=== PATIENT | female | born 1995 | race Caucasian/White ===

== ENCOUNTER 2025-06-21 11:15 | Inpatient (IN) ==
[2025-06-21] MEDS ORDERED: LIDOCAINE 1% LOCAL 20 ML VIAL INFIL PRN (12:09)
--- NOTE | 2025-06-21 12:24 | History & Physical Report ---
Date of Service June 21, 2025 Assessment & Plan (1) Encounter for induction of labor: Plan: Patient is stable and feeling well. Ordered Pitocin to initiate labor. Patient also desired an epidural for when labor starts. (2) Group B streptococcal infection during : Plan: Patient stated she had a GBS positive. Patient denied any penicillin allergy. Ordered penicillin. Admission and Anticipated Discharge Date Admission Date: June 21, 2025 History of Present Illness Chief Complaint: Induction Primary Care Provider: Casandra Ratliff DO 30 yo at 39w4d admitted for IOL for postdates. Patient states that she has not felt any contractions. Patient reports she does feel movement. Patient denies fluid loss and bloody show. Patient states that she has had regular care. She stated that her legs are swollen. Denies fevers, chills, sweats, Headache, CP, SOB, N/V/D, dysuria, and breast pain. GBS+ Allergies Allergy/AdvReac Type Severity Reaction Status Date / Time No Known Allergies Allergy Verified 06/21/25 11:42 Home Medications Medication Instructions Recorded Confirmed Type PNV [id number] 1 tab PO DAILY 11/29/24 06/21/25 History [ Gummies] Patient History Medical History (Updated 06/21/25 @ 12:21 by Francisco Shine DO) Varicella vaccination History of cervical dysplasia (08/02/24) SILVIA II (cervical intraepithelial neoplasia II) Pap smear cannot exclude high grade squamous intraepithelial lesion (ASC-H) Abnormal Pap smear of cervix Surgical History (Updated 06/21/25 @ 11:36 by Hayley Delgado RN) History of loop electrical excision procedure (LEEP) (08/02/24) 11/08/23 [place] teeth removed as a teenager Family History Denies family history of Ovarian cancer Prostate cancer Myocardial infarction Breast cancer Colorectal cancer Social History (Updated 06/21/25 @ 11:42 by Hayley Delgado, ESAU) Smoking Status: Never smoker Second Hand Exposure: No; Do You Dip or Chew Tobacco: No; Hx Alcohol Use: No Hx Substance Use: No Preferred Language: [place] Land [employer] Required: No Beliefs That Will Affect Care: None marital status: marital status details: Simon Castro (33) [phone] Current Living Situation: Spouse Current Living Situation Comment: lives with spouse, no pets current occupational status: unemployed current occupation: homemaker How many Children do You have: 0 Feels Safe at Home: Yes Safety Concerns: Feels Safe At This Time Assistive Devices: None Review of Systems as per Subjective HPI Physical Exam Constitutional: WD/WN, vitals as above Respiratory: normal respiratory effort, lungs clear to auscultation Cardiovascular: Rate/Rhythm: regular rate and regular rhythm Heart Sounds: normal S1 and normal S2 Legs slightly swollen, but wnl for . Gastrointestinal (Abdomen): Percussion/Palpation: abdomen nontender Skin: no rashes, warm and dry Psychiatric: Eye Contact: good eye contact Speech: normal rate/rhythm/volume of speech Thought Process: linear/logical thought process Results & Data Vital Signs (Past 12 Hours) Vital Signs Temp Pulse Resp BP 06/21/25 11:35 36.8 C 16 06/21/25 11:32 87 138/89 Supervising Physician Co-Signing Physician Notes Resident Physician Supervision Note: I was present with Dr. Shine during the history and exam. I discussed the case w ith the resident and agree with the findings and plan as documented in the note. Any exceptions or clarifications are listed here: [None] Documented By: Josseline Layton, DO
[2025-06-21 12:41] LABS: Hematocrit (blood only) 31.0 % (37.0-47.0); Hemoglobin 10.7 g/dl (12.0-16.0); Mean Corpuscular Hemoglobin 29.6 pg (25.0-34.0); Mean Corpuscular Volume 85.9 fL (80.0-100.0); Platelet Count 266 K/uL (130-400); RDW Standard Deviation 43.3 fL (36.4-46.3); Red Blood Count 3.61 M/uL (4.20-5.40); White Blood Count 8.56 K/ul (4.8-10.8)
[2025-06-21] MEDS: PENICILLIN GK 6 MU in DEXTROSE 5% 250 ML IV STA (12:59)
[2025-06-21] MEDS: OXYTOCIN 30 UNITS/NSS 30 UNITS/500 ML BAG IV PRN (12:59)
[2025-06-21] MEDS: LACTATED RINGER'S 1,000 ML IV PRN (12:59)
[2025-06-21] MEDS: PENICILLIN GK 3 MU in DEXTROSE 5% 100 ML IV PRN (16:49)
[2025-06-21] MEDS ORDERED: NALBUPHINE HCL INJ 10 MG/ML AMP IV PRN (16:57)
[2025-06-21] MEDS ORDERED: ROPIVACAINE 0.5% PF 5 MG/ML 20 ML VIAL EPI PRN (16:57)
[2025-06-21] MEDS ORDERED: SODIUM CHLORIDE 0.9% PF INJ 10 ML VIAL EPI PRN (16:57)
[2025-06-21] MEDS ORDERED: NALOXONE HCL 0.4 MG/1 ML VIAL/CARP IV PRN (16:57)
[2025-06-21] MEDS ORDERED: diphenhydrAMINE 50 MG/ML VIAL IV PRN (16:57)
[2025-06-21] MEDS ORDERED: NALOXONE HCL 1 MG in SODIUM CHLORIDE 0.9% 1,000 ML IV PRN (16:57)
[2025-06-21] MEDS ORDERED: LIDOCAINE 2% MPF LOCAL 5 ML VIAL EPI PRN (16:57)
[2025-06-21] MEDS ORDERED: BUPIVACAINE 0.25% PF 30 ML VIAL EPI PRN (16:57)
--- NOTE | 2025-06-21 17:00 | Anesthesiology Consultation ---
Date of Service June 21, 2025 Assessment & Plan Chart Review Chart Review: Patient NOT seen in Pre Admission Testing and Acceptable Risk for Labor Epidural Consults Requested none ASA ASA2 Proposed Anesthesia Anesthesia Type: Labor Epidural Risk / Benefits Reviewed With: PT / POA / Parent / Guardian, Accepts Plan and Informed Consent Obtained History Height/Weight Height: 5 ft 3 in Weight: 87.997 kg Allergies Allergy/AdvReac Type Severity Reaction Status Date / Time No Known Allergies Allergy Verified 06/21/25 11:42 Medications Home Medications Medication Instructions Recorded Confirmed Last Taken PNV no.[id number] 1 tab PO DAILY 11/29/24 06/21/25 06/20/25 [ Gummies] Active Medications Generic Name Dose Route Start Last Admin Trade Name Freq PRN Reason Stop Dose Admin Lactated Ringer's 1,000 mls @ 125 mls/hr 06/21/25 12:09 06/21/25 17:05 Lr IV 06/23/25 12:08 125 mls/hr .Q8H PRN Administration L&D Protocol Protocol Penicillin G Potassium 3 mu/ 106 mls @ 100 mls/hr 06/21/25 15:09 06/21/25 16:49 Dextrose IV 07/01/25 15:08 100 mls/hr Q4H PRN Administration GBS(+) Until Delivery Oxytocin 30 units in 500 mls @ 11 mls/hr 06/21/25 12:09 06/21/25 15:40 Pitocin 30 Units/Nss IV 06/23/25 12:08 0.66 units/hr .Q24H PRN 11 mls/hr Labor Induction/Augmentation Titration Protocol 0.66 UNITS/HR NPO Date Last Intake of Fluids: 06/21/25 Time Last Intake of Fluids: 16:45 Date Last Intake of Solids: 06/21/25 Time Last Intake of Solids: 10:50 Past Medical History Medical History Varicella vaccination History of cervical dysplasia (08/02/24) SILVIA II (cervical intraepithelial neoplasia II) Pap smear cannot exclude high grade squamous intraepithelial lesion (ASC-H) Abnormal Pap smear of cervix Exercise / Class Metabolic Activity 1 > 8 Run/Swim/Ski/Tennis Past Family History Family History Denies family history of Ovarian cancer Prostate cancer Myocardial infarction Breast cancer Colorectal cancer Past Surgical History Surgical History History of loop electrical excision procedure (LEEP) (08/02/24) 11/08/23 [place] teeth removed as a teenager Past Anesthesia History No Hx of Anesthesia Complications and No Family Hx of Anesthesia Complications History of PONV No Hx of PONV and No Hx of Motion Sickness Social History Smoking Status: Never smoker Do You Dip or Chew Tobacco: No Hx Alcohol Use: No Hx Substance Use: No substance use type: does not use Review of Systems ROS Unobtainable: All systems reviewed & are unremarkable except as noted in HPI & below Physical Exam Vital Signs Last Vital Signs Temp 36.7 C 06/21/25 15:00 Pulse 73 06/21/25 16:54 Resp 18 06/21/25 15:00 BP 141/80 H 06/21/25 16:53 Pulse Ox 100 06/21/25 16:54 ENMT Mouth: no TMJ abnormality Thyromental Distance: > or= 3.5 Finger Breadths Mallampati Class: II Neck normal visual inspection and trachea midline; neck extension not limited Respiratory normal respiratory effort Auscultation: lungs clear to auscultation bilaterally Cardiovascular Rate/Rhythm: regular rate and regular rhythm Heart Sounds: no murmur Musculoskeletal Spine: normal cervical ROM Extremities: full ROM of extremities Neurologic moves all extremities Psychiatric Orientation: alert and oriented x 3 Testing Laboratory Results 06/21/25 12:16
[2025-06-21] MEDS: BUPIVACAINE 0.25% PF 30 ML VIAL ONE (17:22)
[2025-06-21] MEDS: SODIUM CHLORIDE 0.9% PF INJ 10 ML VIAL ONE (17:22)
[2025-06-21] MEDS: LIDOCAINE 2%/EPINEPHRINE 1:200,000 20 ML PF ONE (17:22)
[2025-06-21] MEDS: fentANYL 2 MCG/ML BUPIVacaine 0.125%-NSS 100ML BAG ONE (17:23)
[2025-06-21] MEDS: BUPIVACAINE 0.25% PF 30 ML VIAL EPI STA (17:52)
[2025-06-21] MEDS: LIDOCAINE 2%/EPINEPHRINE 1:200,000 20 ML PF EPI STA (17:52)
[2025-06-21] MEDS: SODIUM CHLORIDE 0.9% PF INJ 10 ML VIAL EPI STA (17:52)
--- NOTE | 2025-06-21 19:34 | Labor Progress Brief Note ---
Date of Service June 21, 2025 Subjective Comfortable with epidural. FHT Cat 1. [place] Q 2 SVE 6-7/100/0 AROM clear fluid Assessment & Plan Admission and Anticipated Discharge Date Admission Date: June 21, 2025 Results & Data Vital Signs (Past 12 Hours) Vital Signs Temp Pulse Resp BP Pulse Ox 06/21/25 19:29 75 128/60 99 06/21/25 19:24 89 100 06/21/25 19:19 75 99 06/21/25 19:15 36.8 C 06/21/25 19:14 68 99 06/21/25 19:13 65 132/65 06/21/25 19:09 78 99 06/21/25 19:04 71 100 06/21/25 18:59 84 100 06/21/25 18:58 78 122/67 06/21/25 18:54 71 100 06/21/25 18:49 71 100 06/21/25 18:44 77 100 06/21/25 18:43 73 120/58 L 06/21/25 18:39 70 100 06/21/25 18:34 74 100 06/21/25 18:30 20 06/21/25 18:30 20 06/21/25 18:29 70 113/58 L 100 06/21/25 18:24 74 100 06/21/25 18:19 75 100 06/21/25 18:15 20 06/21/25 18:15 20 06/21/25 18:14 64 116/59 L 99 06/21/25 18:09 70 100 06/21/25 18:04 76 100 06/21/25 18:00 20 06/21/25 18:00 20 06/21/25 17:59 68 99 06/21/25 17:56 71 118/56 L 06/21/25 17:54 69 123/59 L 99 06/21/25 17:52 68 114/56 L 06/21/25 17:50 69 115/56 L 06/21/25 17:49 69 99 06/21/25 17:48 73 110/57 L 06/21/25 17:46 73 120/58 L 06/21/25 17:45 20 06/21/25 17:44 67 116/58 L 99 06/21/25 17:42 67 112/59 L 06/21/25 17:41 88 101/51 L 06/21/25 17:39 81 99 06/21/25 17:38 65 112/64 06/21/25 17:36 65 114/64 06/21/25 17:34 99 06/21/25 17:34 61 06/21/25 17:34 67 109/57 L 06/21/25 17:32 65 102/52 L 06/21/25 17:30 72 20 108/55 L 06/21/25 17:29 97 06/21/25 17:29 75 06/21/25 17:29 75 114/57 L 06/21/25 17:26 71 107/51 L 06/21/25 17:24 79 113/54 L 99 06/21/25 17:22 85 124/67 06/21/25 17:19 80 142/81 H 99 06/21/25 17:14 85 99 06/21/25 17:09 87 100 06/21/25 17:04 78 99 06/21/25 16:59 80 100 06/21/25 16:54 73 100 06/21/25 16:53 71 141/80 H 06/21/25 16:49 81 100 06/21/25 16:44 74 100 06/21/25 16:39 67 99 06/21/25 15:53 67 126/78 06/21/25 15:00 18 06/21/25 15:00 36.7 C 18 06/21/25 14:53 70 120/84 06/21/25 13:53 70 123/75 06/21/25 12:53 75 129/77 06/21/25 11:35 36.8 C 16 06/21/25 11:32 87 138/89 Coding Level of Care Code None
[2025-06-21] MEDS: ONDANSETRON INJ 2 MG/ML 2 ML VIAL IV PRN (22:49)
[2025-06-21] MEDS: NURSING L&D Epidural Breakthrough Pain Update ONE (23:24)
--- NOTE | 2025-06-22 00:03 | Anesthesia Procedure Note ---
Date of Service June 22, 2025 Anesthesia Epidural Re-Dose Vital Signs Temp Pulse Resp BP Pulse Ox 36.8 C 71 20 122/67 97 06/21/25 23:48 06/22/25 00:01 06/21/25 18:30 06/22/25 00:01 06/21/25 23:59 Notes Pain Intensity: 0 Dilatation (cm): 9.0 Effacement (%): 100 Called by nursing to evaluate epidural as the patient is having increased pain. The epidural was re-dosed with the following medications (all medications via epidural route) after negative aspiration of the epidural catheter for CSF/HEME. 0.2 Ropivacaine ml via epidural After Epidural Re-Dose Mental Status: alert / awake / arousable and participated in evaluation Pain: improving with treatment Airway Patency, RR, SpO2: stable & adequate BP & HR: stable & adequate Additional Notes: incrementally dosed 8 cc of 1% lido due to severe pressure in back. Otherwise, patient denies sharp pain and has had bilateral and adequate relief from epidural up until now. HDS. no nausea.
--- NOTE | 2025-06-22 00:19 | Labor Progress Brief Note ---
Date of Service June 22, 2025 Subjective Comfortable with epidural. Starting to push. 10/100/+1 Assessment & Plan Admission and Anticipated Discharge Date Admission Date: June 21, 2025 Results & Data Vital Signs (Past 12 Hours) Vital Signs Temp Pulse Resp BP Pulse Ox 06/22/25 00:14 97 H 98 06/22/25 00:13 81 139/87 06/22/25 00:09 92 H 96 06/22/25 00:08 75 113/69 06/22/25 00:07 86 93 06/22/25 00:04 86 99 06/22/25 00:01 71 122/67 06/21/25 23:59 72 125/70 97 06/21/25 23:57 77 120/64 06/21/25 23:55 71 112/64 06/21/25 23:54 74 97 06/21/25 23:53 65 116/66 06/21/25 23:51 72 117/63 06/21/25 23:49 99 06/21/25 23:49 83 06/21/25 23:49 88 119/66 06/21/25 23:48 36.8 C 06/21/25 23:44 73 131/71 96 06/21/25 23:39 68 97 06/21/25 23:34 88 98 06/21/25 23:29 80 98 06/21/25 23:28 70 128/58 L 06/21/25 23:24 70 100 06/21/25 23:19 90 99 06/21/25 23:14 80 132/63 100 06/21/25 23:09 77 99 06/21/25 23:04 71 100 06/21/25 22:59 80 100 06/21/25 22:58 68 126/58 L 06/21/25 22:54 71 100 06/21/25 22:49 70 98 06/21/25 22:44 99 06/21/25 22:44 66 06/21/25 22:44 67 128/61 06/21/25 22:39 73 99 06/21/25 22:34 82 100 06/21/25 22:29 65 128/63 97 06/21/25 22:24 70 98 06/21/25 22:19 70 96 06/21/25 22:14 77 99 06/21/25 22:13 85 128/60 06/21/25 22:09 72 97 06/21/25 22:04 72 96 06/21/25 21:59 98 06/21/25 21:59 71 06/21/25 21:59 74 132/96 06/21/25 21:54 80 97 06/21/25 21:49 77 97 06/21/25 21:45 81 138/68 06/21/25 21:44 71 98 06/21/25 21:39 75 97 06/21/25 21:35 36.8 C 06/21/25 21:34 79 97 06/21/25 21:29 97 06/21/25 21:29 69 06/21/25 21:29 65 122/65 06/21/25 21:24 71 97 06/21/25 21:19 69 96 06/21/25 21:14 73 98 06/21/25 21:13 71 116/57 L 06/21/25 21:09 75 99 06/21/25 21:04 73 98 06/21/25 20:59 98 06/21/25 20:59 71 06/21/25 20:59 64 114/59 L 06/21/25 20:54 70 98 06/21/25 20:49 65 98 06/21/25 20:44 80 98 06/21/25 20:43 76 114/57 L 06/21/25 20:39 68 97 06/21/25 20:34 72 97 06/21/25 20:31 69 120/61 06/21/25 20:29 70 97 06/21/25 20:24 72 97 06/21/25 20:19 76 97 06/21/25 20:14 79 97 06/21/25 20:13 78 118/63 06/21/25 20:09 75 98 06/21/25 20:04 74 99 06/21/25 19:59 73 99 06/21/25 19:58 70 111/59 L 06/21/25 19:54 72 99 06/21/25 19:49 70 100 06/21/25 19:45 71 113/63 06/21/25 19:44 68 99 06/21/25 19:39 68 99 06/21/25 19:34 68 99 06/21/25 19:29 75 128/60 99 06/21/25 19:24 89 100 08/05/25 19:19 75 99 06/21/25 19:15 36.8 C 06/21/25 19:14 68 99 06/21/25 19:13 65 132/65 06/21/25 19:09 78 99 06/21/25 19:04 71 100 06/21/25 18:59 84 100 06/21/25 18:58 78 122/67 06/21/25 18:54 71 100 06/21/25 18:49 71 100 06/21/25 18:44 77 100 06/21/25 18:43 73 120/58 L 06/21/25 18:39 70 100 06/21/25 18:34 74 100 06/21/25 18:30 20 06/21/25 18:30 20 06/21/25 18:29 70 113/58 L 100 06/21/25 18:24 74 100 06/21/25 18:19 75 100 06/21/25 18:15 20 06/21/25 18:15 20 06/21/25 18:14 64 116/59 L 99 06/21/25 18:09 70 100 06/21/25 18:04 76 100 06/21/25 18:00 20 06/21/25 18:00 20 06/21/25 17:59 68 99 06/21/25 17:56 71 118/56 L 06/21/25 17:54 69 123/59 L 99 06/21/25 17:52 68 114/56 L 06/21/25 17:50 69 115/56 L 06/21/25 17:49 69 99 06/21/25 17:48 73 110/57 L 06/21/25 17:46 73 120/58 L 06/21/25 17:45 20 06/21/25 17:44 67 116/58 L 99 06/21/25 17:42 67 112/59 L 06/21/25 17:41 88 101/51 L 06/21/25 17:39 81 99 06/21/25 17:38 65 112/64 06/21/25 17:36 65 114/64 06/21/25 17:34 99 06/21/25 17:34 61 06/21/25 17:34 67 109/57 L 06/21/25 17:32 65 102/52 L 06/21/25 17:30 72 20 108/55 L 06/21/25 17:29 97 06/21/25 17:29 75 06/21/25 17:29 75 114/57 L 06/21/25 17:26 71 107/51 L 06/21/25 17:24 79 113/54 L 99 06/21/25 17:22 85 124/67 06/21/25 17:19 80 142/81 H 99 06/21/25 17:14 85 99 06/21/25 17:09 87 100 06/21/25 17:04 78 99 06/21/25 16:59 80 100 06/21/25 16:54 73 100 06/21/25 16:53 71 141/80 H 06/21/25 16:49 81 100 06/21/25 16:44 74 100 06/21/25 16:39 67 99 06/21/25 15:53 67 126/78 06/21/25 15:00 18 06/21/25 15:00 36.7 C 18 06/21/25 14:53 70 120/84 06/21/25 13:53 70 123/75 06/21/25 12:53 75 129/77 Coding Level of Care Code None
[2025-06-22] MEDS: fentANYL 2 MCG/ML BUPIVacaine 0.125%-NSS 100ML BAG EPI PRN (01:15)
--- NOTE | 2025-06-22 01:44 | Labor Progress Brief Note ---
Date of Service June 22, 2025 Subjective FHT Cat 1 [place] Q 2 Continues pushing, station +1 to +2. Assessment & Plan Admission and Anticipated Discharge Date Admission Date: June 21, 2025 Results & Data Vital Signs (Past 12 Hours) Vital Signs Temp Pulse Resp BP Pulse Ox 06/22/25 01:42 90 91 06/22/25 01:40 72 97 06/22/25 01:37 70 90 06/22/25 01:35 69 96 06/22/25 01:32 96 H 91 06/22/25 01:30 100 H 98 06/22/25 01:28 36.8 C 06/22/25 01:25 118 H 76 L 06/22/25 01:20 73 97 06/22/25 01:15 64 96 06/22/25 01:14 65 133/70 06/22/25 01:10 68 96 06/22/25 01:05 88 97 06/22/25 01:00 78 95 06/22/25 00:58 73 129/68 06/22/25 00:55 77 96 06/22/25 00:50 84 96 06/22/25 00:45 85 97 06/22/25 00:44 81 130/71 06/22/25 00:40 75 97 06/22/25 00:35 91 H 97 06/22/25 00:31 91 H 90 06/22/25 00:29 85 127/63 96 06/22/25 00:25 73 92 06/22/25 00:24 73 97 06/22/25 00:19 78 97 06/22/25 00:14 97 H 98 06/22/25 00:13 81 139/87 06/22/25 00:09 92 H 96 06/22/25 00:08 75 113/69 06/22/25 00:07 86 93 06/22/25 00:04 86 99 06/22/25 00:01 71 122/67 06/21/25 23:59 72 125/70 97 06/21/25 23:57 77 120/64 06/21/25 23:55 71 112/64 06/21/25 23:54 74 97 06/21/25 23:53 65 116/66 06/21/25 23:51 72 117/63 06/21/25 23:49 99 06/21/25 23:49 83 08/05/25 23:49 88 119/66 06/21/25 23:48 36.8 C 06/21/25 23:44 73 131/71 96 06/21/25 23:39 68 97 06/21/25 23:34 88 98 06/21/25 23:29 80 98 06/21/25 23:28 70 128/58 L 06/21/25 23:24 70 100 06/21/25 23:19 90 99 06/21/25 23:14 80 132/63 100 06/21/25 23:09 77 99 06/21/25 23:04 71 100 06/21/25 22:59 80 100 06/21/25 22:58 68 126/58 L 06/21/25 22:54 71 100 06/21/25 22:49 70 98 06/21/25 22:44 99 06/21/25 22:44 66 06/21/25 22:44 67 128/61 06/21/25 22:39 73 99 06/21/25 22:34 82 100 06/21/25 22:29 65 128/63 97 06/21/25 22:24 70 98 06/21/25 22:19 70 96 06/21/25 22:14 77 99 06/21/25 22:13 85 128/60 06/21/25 22:09 72 97 06/21/25 22:04 72 96 06/21/25 21:59 98 06/21/25 21:59 71 06/21/25 21:59 74 132/96 06/21/25 21:54 80 97 06/21/25 21:49 77 97 06/21/25 21:45 81 138/68 06/21/25 21:44 71 98 06/21/25 21:39 75 97 06/21/25 21:35 36.8 C 06/21/25 21:34 79 97 06/21/25 21:29 97 06/21/25 21:29 69 06/21/25 21:29 65 122/65 06/21/25 21:24 71 97 06/21/25 21:19 69 96 06/21/25 21:14 73 98 06/21/25 21:13 71 116/57 L 06/21/25 21:09 75 99 06/21/25 21:04 73 98 06/21/25 20:59 98 06/21/25 20:59 71 06/21/25 20:59 64 114/59 L 06/21/25 20:54 70 98 06/21/25 20:49 65 98 06/21/25 20:44 80 98 06/21/25 20:43 76 114/57 L 06/21/25 20:39 68 97 06/21/25 20:34 72 97 06/21/25 20:31 69 120/61 06/21/25 20:29 70 97 06/21/25 20:24 72 97 06/21/25 20:19 76 97 06/21/25 20:14 79 97 06/21/25 20:13 78 118/63 06/21/25 20:09 75 98 06/21/25 20:04 74 99 06/21/25 19:59 73 99 06/21/25 19:58 70 111/59 L 06/21/25 19:54 72 99 06/21/25 19:49 70 100 06/21/25 19:45 71 113/63 06/21/25 19:44 68 99 06/21/25 19:39 68 99 06/21/25 19:34 68 99 06/21/25 19:29 75 128/60 99 06/21/25 19:24 89 100 06/21/25 19:19 75 99 06/21/25 19:15 36.8 C 06/21/25 19:14 68 99 06/21/25 19:13 65 132/65 06/21/25 19:09 78 99 06/21/25 19:04 71 100 06/21/25 18:59 84 100 06/21/25 18:58 78 122/67 06/21/25 18:54 71 100 06/21/25 18:49 71 100 06/21/25 18:44 77 100 06/21/25 18:43 73 120/58 L 06/21/25 18:39 70 100 06/21/25 18:34 74 100 06/21/25 18:30 20 06/21/25 18:30 20 06/21/25 18:29 70 113/58 L 100 06/21/25 18:24 74 100 06/21/25 18:19 75 100 06/21/25 18:15 20 06/21/25 18:15 20 06/21/25 18:14 64 116/59 L 99 06/21/25 18:09 70 100 06/21/25 18:04 76 100 06/21/25 18:00 20 06/21/25 18:00 20 06/21/25 17:59 68 99 06/21/25 17:56 71 118/56 L 06/21/25 17:54 69 123/59 L 99 06/21/25 17:52 68 114/56 L 06/21/25 17:50 69 115/56 L 06/21/25 17:49 69 99 06/21/25 17:48 73 110/57 L 06/21/25 17:46 73 120/58 L 06/21/25 17:45 20 06/21/25 17:44 67 116/58 L 99 06/21/25 17:42 67 112/59 L 06/21/25 17:41 88 101/51 L 06/21/25 17:39 81 99 06/21/25 17:38 65 112/64 06/21/25 17:36 65 114/64 06/21/25 17:34 99 06/21/25 17:34 61 06/21/25 17:34 67 109/57 L 06/21/25 17:32 65 102/52 L 06/21/25 17:30 72 20 108/55 L 06/21/25 17:29 97 06/21/25 17:29 75 06/21/25 17:29 75 114/57 L 06/21/25 17:26 71 107/51 L 06/21/25 17:24 79 113/54 L 99 06/21/25 17:22 85 124/67 06/21/25 17:19 80 142/81 H 99 06/21/25 17:14 85 99 06/21/25 17:09 87 100 06/21/25 17:04 78 99 06/21/25 16:59 80 100 06/21/25 16:54 73 100 06/21/25 16:53 71 141/80 H 06/21/25 16:49 81 100 06/21/25 16:44 74 100 06/21/25 16:39 67 99 06/21/25 15:53 67 126/78 06/21/25 15:00 06/21/25 15:00 36.7 C 06/21/25 14:53 70 120/84 06/21/25 13:53 70 123/75 Coding Level of Care Code None
[2025-06-22] MEDS: KETOROLAC 30 MG/ML VIAL IV ONE (04:05)
[2025-06-22] MEDS: OXYTOCIN 30 UNITS/NSS 30 UNITS/500 ML BAG IV PRN (04:20)
--- NOTE | 2025-06-22 04:28 | Delivery Summary ---
Vaginal Delivery Summary Date of Service June 22, 2025 Vaginal Delivery Summary and 4th Degree LAC Vaginal Delivery Summary: Pre-delivery diagnoses: 30yo @ 39 5/7, GBS+, elective induction Post-delivery diagnoses: same Procedure: spontaneous vaginal delivery Surgeon: Josseline Layton DO Complications: none Findings: Viable male . Apgars: 8/8 . Weight pending, please see nursery records Estimated QBL: not yet calculated, moving to OR Description of delivery: The patient progressed to complete with epidural anesthesia. She then began to push. She pushed for 2 hours, then took a 30 minute rest, then pushed again for 1.5 hours to spontaneously vaginally delivered a viable from the cephalic presentation. The head delivered in LISA position. The anterior shoulder delivered, followed by the posterior shoulder, followed by the body. The baby was placed on mother's abdomen and a spontaneous cry was heard. Delayed cord clamping was employed, and the cord was doubly clamped and cut. Cord blood was obtained. The placenta was delivered spontaneously intact with a 3-vessel cord. The uterus and vagina were swept of clots and debris. IV pitocin was given. The uterus became firm. The cervix, vagina, and perineum were inspected - unable to fully inspect due to patient's pain, however visible 4th degree laceration. Gave 1% lidocaine at laceration site, but patient unable to relax leg muscles enough to permit full exam - I advised move to OR for better visualization and anesthesia options - patient agreed. Baby to nursery, patient to L&D OR for laceration repair. Josseline Layton [facility] Vaginal Delivery Charge Vaginal Delivery Codes: 42007 global code for the antepartum, delivery, and post- Delivery Type Details: and 4th Degree LAC
[2025-06-22] MEDS ORDERED: MIDAZOLAM HCL 1 MG/ML 2ML VIAL ONE (04:38)
[2025-06-22] MEDS ORDERED: LIDOCAINE 2%/EPINEPHRINE 1:200,000 20 ML PF ONE (04:38)
[2025-06-22] MEDS ORDERED: DexMEDEtomidine HCL IV 100 MCG/ML VIAL IV ONE (04:46)
--- NOTE | 2025-06-22 04:58 | Communication Note ---
Date of Service: June 22, 2025 decision made to take patient to OR due to 4th degree tear with difficulty doing repair at bedside. Discussed anesthetic options with patient and plan to redose epidural with 2% lido + epi and provide MAC. GA is backup plan. Patient agreeable. HDS and bleeding controlled at this time.
[2025-06-22] MEDS ORDERED: DEXAMETHASONE SOD INJ 4 MG/ML VIAL ONE (05:31)
[2025-06-22] MEDS ORDERED: ONDANSETRON INJ 2 MG/ML 2 ML VIAL ONE (05:31)
--- NOTE | 2025-06-22 05:51 | Anesthesia Procedure Note ---
Date of Service June 22, 2025 Anesthesia Post Epidural Note Vital Signs Vital Signs: Temp Pulse Resp BP Pulse Ox 36.7 C 81 20 93/54 L 96 06/22/25 03:33 06/22/25 05:48 06/21/25 18:30 06/22/25 05:48 06/22/25 05:45 Notes Mental Status: alert / awake / arousable and participated in evaluation Nausea / Vomiting: adequately controlled Pain: adequately controlled Airway Patency, RR, SpO2: stable & adequate BP & HR: stable & adequate Hydration State: stable & adequate Neuraxial Anesthesia: was administered and sensory block is resolving Anesthetic Complications: no major complications apparent Epidural: Removed without complications and With tip intact
--- NOTE | 2025-06-22 05:52 | Anesthesiology Progress Note ---
Date of Service June 22, 2025 Anesthesia Post Procedure Vital Signs Vital Signs: Temp Pulse Resp BP Pulse Ox 06/22/25 05:48 81 93/54 L 06/22/25 05:46 94 H 99/54 L 06/22/25 05:45 91 H 96 06/22/25 04:30 92 H 99 06/22/25 04:28 91 H 141/73 H 06/22/25 04:25 83 99 06/22/25 04:20 86 100 06/22/25 04:15 97 H 100 06/22/25 04:13 85 140/71 06/22/25 04:10 98 H 100 06/22/25 04:05 100 H 99 06/22/25 04:00 91 H 98 06/22/25 03:58 93 H 134/69 06/22/25 03:55 97 H 93 06/22/25 03:50 116 H 98 06/22/25 03:45 103 H 98 06/22/25 03:43 75 135/70 06/22/25 03:40 101 H 97 06/22/25 03:36 106 H 87 L 06/22/25 03:35 81 96 06/22/25 03:33 36.7 C 06/22/25 03:30 94 H 99 06/22/25 03:29 73 134/70 06/22/25 03:25 67 96 06/22/25 03:23 106 H 84 L 06/22/25 03:20 76 96 06/22/25 03:17 86 87 L 06/22/25 03:15 97 06/22/25 03:15 78 06/22/25 03:15 90 134/63 06/22/25 03:12 74 81 L 06/22/25 03:10 80 97 06/22/25 03:05 98 H 99 06/22/25 03:00 87 98 06/22/25 02:59 73 131/67 06/22/25 02:55 79 98 06/22/25 02:51 100 H 74 L 06/22/25 02:50 70 97 06/22/25 02:45 80 100 06/22/25 02:43 99 H 83 L 06/22/25 02:40 84 97 06/22/25 02:35 75 97 06/22/25 02:30 69 99 06/22/25 02:29 65 133/90 06/22/25 02:25 74 97 06/22/25 02:20 88 93 06/22/25 02:15 97 H 97 06/22/25 02:13 82 132/75 06/22/25 02:10 86 97 06/22/25 02:07 80 84 L 06/22/25 02:05 79 98 06/22/25 02:01 84 88 L 06/22/25 02:00 76 97 06/22/25 01:59 68 124/62 06/22/25 01:55 80 97 06/22/25 01:53 87 83 L 06/22/25 01:50 87 98 06/22/25 01:48 70 138/61 06/22/25 01:47 84 88 L 06/22/25 01:45 69 97 06/22/25 01:42 90 91 06/22/25 01:40 72 97 06/22/25 01:37 70 90 06/22/25 01:35 69 96 06/22/25 01:32 96 H 91 06/22/25 01:30 100 H 98 06/22/25 01:28 36.8 C 06/22/25 01:25 118 H 76 L 06/22/25 01:20 73 97 06/22/25 01:15 64 96 06/22/25 01:14 65 133/70 06/22/25 01:10 68 96 06/22/25 01:05 88 97 06/22/25 01:00 78 95 06/22/25 00:58 73 129/68 06/22/25 00:55 77 96 06/22/25 00:50 84 96 06/22/25 00:45 85 97 06/22/25 00:44 81 130/71 06/22/25 00:40 75 97 06/22/25 00:35 91 H 97 06/22/25 00:31 91 H 90 06/22/25 00:29 85 127/63 96 06/22/25 00:25 73 92 06/22/25 00:24 73 97 06/22/25 00:19 78 97 06/22/25 00:14 97 H 98 06/22/25 00:13 81 139/87 06/22/25 00:09 92 H 96 06/22/25 00:08 75 113/69 06/22/25 00:07 86 93 06/22/25 00:04 86 99 06/22/25 00:01 71 122/67 06/21/25 23:59 72 125/70 97 06/21/25 23:57 77 120/64 06/21/25 23:55 71 112/64 06/21/25 23:54 74 97 06/21/25 23:53 65 116/66 06/21/25 23:51 72 117/63 06/21/25 23:49 99 06/21/25 23:49 83 06/21/25 23:49 88 119/66 06/21/25 23:48 36.8 C 06/21/25 23:44 73 131/71 96 06/21/25 23:39 68 97 06/21/25 23:34 88 98 06/21/25 23:29 80 98 06/21/25 23:28 70 128/58 L 06/21/25 23:24 70 100 06/21/25 23:19 90 99 06/21/25 23:14 80 132/63 100 06/21/25 23:09 77 99 06/21/25 23:04 71 100 06/21/25 22:59 80 100 06/21/25 22:58 68 126/58 L 06/21/25 22:54 71 100 06/21/25 22:49 70 98 06/21/25 22:44 99 06/21/25 22:44 66 06/21/25 22:44 67 128/61 06/21/25 22:39 73 99 06/21/25 22:34 82 100 06/21/25 22:29 65 128/63 97 06/21/25 22:24 70 98 06/21/25 22:19 70 96 06/21/25 22:14 77 99 06/21/25 22:13 85 128/60 05 22:09 72 97 06/21/25 22:04 72 96 06/21/25 21:59 98 06/21/25 21:59 71 06/21/25 21:59 74 132/96 06/21/25 21:54 80 97 05 21:49 77 97 06/21/25 21:45 81 138/68 06/21/25 21:44 71 98 06/21/25 21:39 75 97 08/05/25 21:35 36.8 C 06/21/25 21:34 79 97 06/21/25 21:29 97 06/21/25 21:29 69 06/21/25 21:29 65 122/65 06/21/25 21:24 71 97 06/21/25 21:19 69 96 06/21/25 21:14 73 98 06/21/25 21:13 71 116/57 L 06/21/25 21:09 75 99 06/21/25 21:04 73 98 06/21/25 20:59 98 06/21/25 20:59 71 06/21/25 20:59 64 114/59 L 06/21/25 20:54 70 98 06/21/25 20:49 65 98 06/21/25 20:44 80 98 06/21/25 20:43 76 114/57 L 06/21/25 20:39 68 97 06/21/25 20:34 72 97 06/21/25 20:31 69 120/61 06/21/25 20:29 70 97 06/21/25 20:24 72 97 06/21/25 20:19 76 97 06/21/25 20:14 79 97 06/21/25 20:13 78 118/63 06/21/25 20:09 75 98 06/21/25 20:04 74 99 06/21/25 19:59 73 99 06/21/25 19:58 70 111/59 L 06/21/25 19:54 72 99 06/21/25 19:49 70 100 06/21/25 19:45 71 113/63 06/21/25 19:44 68 99 06/21/25 19:39 68 99 06/21/25 19:34 68 99 06/21/25 19:29 75 128/60 99 06/21/25 19:24 89 100 06/21/25 19:19 75 99 06/21/25 19:15 36.8 C 06/21/25 19:14 68 99 06/21/25 19:13 65 132/65 06/21/25 19:09 78 99 06/21/25 19:04 71 100 06/21/25 18:59 84 100 06/21/25 18:58 78 122/67 06/21/25 18:54 71 100 06/21/25 18:49 71 100 06/21/25 18:44 77 100 06/21/25 18:43 73 120/58 L 06/21/25 18:39 70 100 06/21/25 18:34 74 100 06/21/25 18:30 20 06/21/25 18:30 20 06/21/25 18:29 70 113/58 L 100 06/21/25 18:24 74 100 06/21/25 18:19 75 100 06/21/25 18:15 20 06/21/25 18:15 20 06/21/25 18:14 64 116/59 L 99 06/21/25 18:09 70 100 06/21/25 18:04 76 100 06/21/25 18:00 20 06/21/25 18:00 20 06/21/25 17:59 68 99 06/21/25 17:56 71 118/56 L 06/21/25 17:54 69 123/59 L 99 06/21/25 17:52 68 114/56 L 06/21/25 17:50 69 115/56 L 06/21/25 17:49 69 99 06/21/25 17:48 73 110/57 L 06/21/25 17:46 73 120/58 L 06/21/25 17:45 20 06/21/25 17:44 67 116/58 L 99 06/21/25 17:42 67 112/59 L 06/21/25 17:41 88 101/51 L 06/21/25 17:39 81 99 06/21/25 17:38 65 112/64 06/21/25 17:36 65 114/64 06/21/25 17:34 99 06/21/25 17:34 61 06/21/25 17:34 67 109/57 L 06/21/25 17:32 65 102/52 L 06/21/25 17:30 72 20 108/55 L 06/21/25 17:29 97 06/21/25 17:29 75 06/21/25 17:29 75 114/57 L 06/21/25 17:26 71 107/51 L 06/21/25 17:24 79 113/54 L 99 06/21/25 17:22 85 124/67 06/21/25 17:19 80 142/81 H 99 06/21/25 17:14 85 99 06/21/25 17:09 87 100 06/21/25 17:04 78 99 06/21/25 16:59 80 100 06/21/25 16:54 73 100 06/21/25 16:53 71 141/80 H 06/21/25 16:49 81 100 06/21/25 16:44 74 100 06/21/25 16:39 67 99 06/21/25 15:53 67 126/78 06/21/25 15:00 18 06/21/25 15:00 36.7 C 18 06/21/25 14:53 70 120/84 06/21/25 13:53 70 123/75 06/21/25 12:53 75 129/77 06/21/25 11:35 36.8 C 16 06/21/25 11:32 87 138/89 Transfer of Care Handoff Completed per policy Notes Mental Status: alert / awake / arousable Patient Amnestic to Procedure: Yes Nausea / Vomiting: adequately controlled Pain: adequately controlled Airway Patency, RR, SpO2: stable & adequate BP & HR: stable & adequate Hydration State: stable & adequate Neuraxial Anesthesia: was administered and sensory block is resolving Anesthetic Complications: no major complications apparent and Pt Satisfied with anesthetic care
--- NOTE | 2025-06-22 05:56 | Operative Report ---
PG Post Operative Report Pre & Post Diagnosis Operation Date: 06/22/25 04:40 Pre-Op Diagnosis: 4th degree vaginal laceration; unable to tolerate repair in room Post-Op Diagnosis: same as preop I identified the patient and participated in the time-out.: Yes Procedure Operation Date: 06/22/25 04:40 Actual Procedures p Repair Vaginal Laceration under sedation in OR - Josseline Layton DO Surgeon Josseline Layton DO C4 Planner none Estimated Blood Loss 192 Findings Consistent with Post-Op Diagnosis 4th degree perineal laceration, right vaginal sulcal tear Specimens none Drains falcon placed at end of case Anesthesia Type MAC Epidural Complications none Disposition Accompanied Patient To Recovery: No Disposition: L&D Indications After vaginal delivery, identified fourth degree perineal laceration, gave patient Toradol and 1% lidocaine at laceration site, unable to tolerate exam or repair due to pain, therefore she was taken to the operating room for better visualization and anesthesia Description of Procedure The patient was taken to the operating room, anesthetic was administered. Patient identity and procedure were confirmed. She was positioned in the dorsolithotomy position with feet in yellowfin stirrups. Uterus was firm, no clots or debris. The cervix was hemostatic. Right vaginal sulcal tear noted. This was repaired with 3-0 Vicryl in a running stitch. Fourth degree perineal laceration was identified, with brief interruption at the most distal end of the internal anal sphincter. Bilateral external anal sphincter segments were identified and grasped with Allis clamps. 3-0 Vicryl was used to reapproximate the distal end of the internal anal sphincter in an overlapping technique. Then the external anal sphincter ends were reapproximated using 3-0 chromic in [id number] stitches. The remaining vaginal laceration was reapproximated using 3-0 Vicryl in standard fashion. Patient tolerated procedure well, will return to L&D room for further recovery. Sponge, instrument, needle counts correct at conclusion of procedure. I attest to the content of the Intraoperative Record and any orders documented therein. Any exceptions are noted below.
--- NOTE | 2025-06-22 05:57 | Communication Note ---
Date of Service: June 22, 2025 QBL for vaginal delivery calculated: 325cc. Then, OR QBL during repair 192.
[2025-06-22] MEDS ORDERED: HYDROCORTISONE ACETATE 25 MG SUPP PR PRN (07:30)
[2025-06-22] MEDS ORDERED: MAGNESIUM HYDROXIDE SUSP 30 ML UDC PO PRN (07:30)
[2025-06-22] MEDS ORDERED: OXYTOCIN 30 UNITS/NSS 30 UNITS/500 ML BAG IV PRN (07:30)
[2025-06-22] MEDS ORDERED: BENZOCAINE 20% SPRY 85 APPLN/85 GM CAN EXT PRN (07:30)
[2025-06-22] MEDS ORDERED: ACETAMINOPHEN 325 MG TAB PO PRN (07:30)
[2025-06-22] MEDS: KETOROLAC 30 MG/ML VIAL ONE (07:38)
[2025-06-22] MEDS: DOCUSATE SODIUM 100 MG CAP PO SCH (08:16)
[2025-06-22] MEDS: PRENATAL VITAMIN 1 TAB PO SCH ×2 (08:16→20:24)
[2025-06-22] MEDS: DIPHTHER/TETAN/PERTUS Vaccine (Tdap, Adol/Adult) 0.5mL IM ONE (08:18)
[2025-06-22] MEDS ORDERED: Nursing to Pharmacy Communication SCH (09:00)
[2025-06-22] MEDS: IBUPROFEN 600 MG TAB PO PRN (09:28)
--- NOTE | 2025-06-23 05:44 | Obstetrical Progress Note ---
Date of Service June 23, 2025 Assessment & Plan (1) care and examination: Plan: Patient is currently stable. Will continue to monitor. (2) Group B streptococcal infection during : Plan: Patient stated she had a GBS positive. Patient denied any penicillin allergy. Ordered penicillin. Admission and Anticipated Discharge Date Admission Date: June 21, 2025 Supervising Physician Co-Signing Physician Notes Resident Physician Supervision Note: I was present with Dr. Shine during the history and exam. I discussed the case with the resident and agree with the findings and plan as documented in the note. Any exceptions or clarifications are listed here: [None] Documented By: Jung Wells MD, FACOG Subjective 30 yo post- day 1 s/p [] w/ 4th degree perineal laceration repair Ambulation: ambulating normally Voiding: no voiding problems Passing Gas:: Yes Diet Tolerance:: regular diet Feeding Type:: bottle feeding. Will try to breast feed later. Current Pain Level:Improved. A 1/10 for pain. Patient is taking advil. Patient admits to swelling in her legs have gone down. Also noticed more swelling in her L. leg compared to the R. leg. Patient admits to not much bleeding from her surgical site. Resting comfortably this AM in NAD. Denies fever/chills, RAY, CP/palp, SOB/cough/wheezing, N/V, LE pain, breast pain/dischrg, UTI Sx. Review of Systems Review of Systems: as per Subjective HPI Physical Exam Constitutional: WD/WN, vitals as above Respiratory: normal respiratory effort, lungs clear to auscultation Cardiovascular: Rate/Rhythm: regular rate and regular rhythm Heart Sounds: normal S1 and normal S2 Extremities: no calf tenderness Some swelling in LE b/l. L. leg more swollen than R. leg. Gastrointestinal (Abdomen): Percussion/Palpation: abdomen soft; abdomen nontender Skin: no rashes, warm and dry Psychiatric: Eye Contact: good eye contact Speech: normal rate/rhythm/volume of speech Thought Process: linear/logical thought process Genitourinary: Uterus 1cm above umbilicus Results & Data Vital Signs (Past 12 Hours) Vital Signs Temp Pulse Resp BP Pulse Ox O2 Del Method 06/23/25 02:00 36.8 C 73 16 120/70 100 Room Air 06/22/25 23:00 36.7 C 80 18 123/80 100 Room Air 06/22/25 19:25 36.7 C 90 16 119/75 100 Room Air
[2025-06-23 07:13] LABS: Hematocrit (blood only) 28.9 % (37.0-47.0); Hemoglobin 9.7 g/dl (12.0-16.0)
[2025-06-23 20:50] VITALS: RESP 16
[2025-06-24 03:41] VITALS: O2SAT 98
--- NOTE | 2025-06-24 06:36 | Obstetrical Progress Note ---
Date of Service June 24, 2025 Assessment & Plan (1) care and examination: Plan: Patient is PP day 2 post status with fourth degree laceration repair. Patient is currently stable. Discussed with patient about her lack of BM. Consulted to still take the laxatives, and if needed, to sit in a warm bath and have a BM at that time. Advised the patient to make an appointment with Dr. Layton to look at her laceration repair. Will discharge today. (2) Group B streptococcal infection during : Plan: Patient was GBS positive on labs. Patient denied any penicillin allergy. Ordered penicillin. Admission and Anticipated Discharge Date Admission Date: June 21, 2025 Supervising Physician Co-Signing Physician Notes Resident Physician Supervision Note: I interviewed and examined the patient. Discussed with Dr. Shine and agree with findings and plan as documented in the note. Any exceptions or clarifications are listed here: Doing well. Discussed concerns about moving her bowel. Is ready for d/c. Instructions reviewed. Documented By: Nicky Tong MD, FACOG Subjective 30 yo post- day 2 s/p [] w/ 4th degree perineal laceration repair Ambulation: ambulating normally Voiding: no voiding problems Passing Gas:: Yes Diet Tolerance:: regular diet Feeding Type:: bottle feeding. Tried breast feeding, but still having difficulty. Current Pain Level:Improved. Pain is a 3/10 when trying to have a BM. Resting comfortably this AM in NAD. Patient admits to LE swelling. Patient also admits to having a little bit of burning while urinating today. She also said she was having a hard time having a BM. She feels like she needs to go but can't. Denies fever/chills, RAY, CP/palp, SOB/cough/wheezing, N/V, LE pain, breast pain/dischrg. Review of Systems Review of Systems: as per Subjective HPI Physical Exam Constitutional: WD/WN, vitals as above Respiratory: normal respiratory effort, lungs clear to auscultation Cardiovascular: Rate/Rhythm: regular rate and regular rhythm Heart Sounds: normal S1 and normal S2 Extremities: no calf tenderness Gastrointestinal (Abdomen): Percussion/Palpation: + abdomen tender (LLQ) and abdomen soft Skin: no rashes, warm and dry Psychiatric: Eye Contact: good eye contact Speech: normal rate/rhythm/volume of speech Thought Process: linear/logical thought process Genitourinary: uterus is 1cm above umbilicus and firm Results & Data Vital Signs (Past 12 Hours) Vital Signs Temp Pulse Resp BP Pulse Ox O2 Del Method 06/24/25 01:30 36.7 C 80 16 118/76 98 Room Air 06/23/25 20:30 Room Air 06/23/25 20:30 36.7 C 68 16 118/80 100 Room Air Laboratory Results Lab Results 06/21/25 06/23/25 Range/Units 12:16 06:24 WBC 8.56 (4.8-10.8) K/ul RBC 3.61 L (4.20-5.40) M/uL Hgb 10.7 L 9.7 L (12.0-16.0) g/dl Hct 31.0 L 28.9 L (37.0-47.0) % MCV 85.9 (80.0-100.0) fL MCH 29.6 (25.0-34.0) pg MCHC 34.5 (32.0-36.0) g/dL RDW Std Deviation 43.3 (36.4-46.3) fL RDW Coeff of Harjeet 13.9 (11.5-14.5) % Plt Count 266 (130-400) K/uL MPV 11.1 (9.4-12.4) fL Treponema pallidum Ab Negative (Negative)
[2025-06-24 09:07] VITALS: BP 126/78; PULSE 79; TEMP 97.3
[2025-06-24] MEDS: POLYETHYLENE (MIRALAX) 17 GM PACK PO PRN (11:00)
== END 2025-06-24 13:35 | disposition home or self-care (01) | DRG 768 ==
LOC: 4S1 11:15 → 4E2 06-22 09:20